=== PATIENT | female | born 1975 | race Caucasian/White ===

== ENCOUNTER 2018-04-11 12:10 | Emergency (ER) | payer MEDICAID, OTHER ==
[~2018-04-11] VITALS: Ht 162.6 cm; Wt 44.8 kg
[2018-04-11] MEDS ORDERED: METO25TA35 PO (13:04)
[2018-04-11] MEDS ORDERED: OXCA150T3 PO (13:04)
[2018-04-11] MEDS ORDERED: ESZO1TAB8 PO (13:05)
[2018-04-11] MEDS ORDERED: MULT-516 PO (13:05)
[2018-04-11] MEDS ORDERED: ASCO500T8 PO (13:06)
[2018-04-11 13:46] LABS: BASOPHILS # (AUTO) 0.02 x10^3/uL (0-0.1); BASOPHILS % (AUTO) 0 % (0-1); EOSINOPHILS # (AUTO) 0.08 x10^3/uL (0-0.4); EOSINOPHILS % (AUTO) 1 % (1-7); LYMPHOCYTES # (AUTO) 1.62 x10^3/uL (1-3.4); LYMPHOCYTES % (AUTO) 28 % (22-44); MD NO; MEAN CORPUSCULAR HEMOGLOBIN 32.6 pg (27.0-34.8); MEAN CORPUSCULAR HGB CONC 33.9 g/dL (32.4-35.8); MEAN CORPUSCULAR VOLUME 96.1 fL (80-100); MEAN PLATELET VOLUME 8.7 fL (7.4-10.4); MONOCYTES # (AUTO) 0.36 x10^3/uL (0.2-0.8); MONOCYTES % (AUTO) 6 % (2-9); NEUTROPHILS # (AUTO) 3.83 x10^3/uL (1.8-6.8); NEUTROPHILS % (AUTO) 65 % (42-75); PLATELET COUNT 229 x10^3/uL (130-400); RED BLOOD COUNT 4.03 x10^6/uL (3.82-5.3); RED CELL DISTRIBUTION WIDTH 13.5 % (9.6-15.2)
[2018-04-11 13:48] LABS: ALANINE AMINOTRANSFERASE 24 U/L (12-78); ALBUMIN 3.8 g/dL (3.4-5.0); ANION GAP 5 mmol/L (5-15); CALCIUM 8.6 mg/dL (8.5-10.1); CHLORIDE 107 mmol/L (98-107); CREATININE 0.75 mg/dL (0.55-1.02)
[2018-04-11 13:51] LABS: ALKALINE PHOSPHATASE 39 U/L (45-117); BILIRUBIN,TOTAL 0.4 mg/dL (0.2-1.0); TOTAL PROTEIN 6.7 g/dL (6.4-8.2)
[2018-04-11 13:57] VITALS: BP 115/61
[2018-04-11] MEDS ORDERED: OXYcodone/APAP 5/325MG TABLET ONE (14:57)
[2018-04-11] MEDS ORDERED: OXYcodone/APAP 5/325MG TABLET PO ONE (15:00)
== END 2018-04-11 15:03 | disposition home or self-care (01) ==
LOC: ED 14:28
DX: M54.12 Radiculopathy, cervical region (principal); R63.4 Abnormal weight loss; R59.1 Generalized enlarged lymph nodes; Z90.49 Acquired absence of other specified parts of digestive tract
CPT/HCPCS: 36415; 72125; 80053; 83605; 85025; 93005; 99285

== ENCOUNTER 2018-05-17 11:03 | Emergency (ER) | payer MEDICAID ==
[~2018-05-17] VITALS: Ht 162.6 cm; Wt 45.2 kg
[~2018-05-17 11:03] MED LIST: ASCO500T8 PO; ESZO1TAB8 PO; METO25TA35 PO; MULT-516 PO; OXCA150T3 PO
[2018-05-17] MEDS ORDERED: IBUPROFEN 200 MG TABLET ONE ×2 (11:46→11:47)
[2018-05-17] MEDS ORDERED: IBUPROFEN 200 MG TABLET PO ONE (12:00)
[2018-05-17 12:19] LABS: HCG UR SG 1.016 (1.003-1.030); MICROSCOPIC AUTO
[2018-05-17 12:23] LABS: CULTURE INDICATED? YES
[2018-05-17 13:43] VITALS: BP 108/73
== END 2018-05-17 13:47 | disposition home or self-care (01) ==
LOC: ED 13:41
DX: G89.29 Other chronic pain (principal); M25.512 Pain in left shoulder; M54.14 Radiculopathy, thoracic region; Z90.49 Acquired absence of other specified parts of digestive tract
CPT/HCPCS: 72072; 81001; 81025; 87077; 87086; 87186; 99285

== ENCOUNTER 2018-06-17 02:17 | Emergency (ER) | payer MEDICAID ==
[~2018-06-17] VITALS: Ht 162.6 cm; Wt 50.5 kg
[2018-06-17 02:19] VITALS: BP 118/82
[2018-06-17 03:11] LABS: BASOPHILS # (AUTO) 0.06 x10^3/uL (0-0.1); BASOPHILS % (AUTO) 1 % (0-1); EOSINOPHILS # (AUTO) 0.07 x10^3/uL (0-0.4); EOSINOPHILS % (AUTO) 1 % (1-7); LYMPHOCYTES # (AUTO) 2.43 x10^3/uL (1-3.4); LYMPHOCYTES % (AUTO) 40 % (22-44); MD NO; MEAN CORPUSCULAR HGB CONC 33.6 g/dL (32.4-35.8); MEAN PLATELET VOLUME 8.8 fL (7.4-10.4); MONOCYTES # (AUTO) 0.45 x10^3/uL (0.2-0.8); MONOCYTES % (AUTO) 8 % (2-9); NEUTROPHILS # (AUTO) 3.07 x10^3/uL (1.8-6.8); NEUTROPHILS % (AUTO) 51 % (42-75); PLATELET COUNT 217 x10^3/uL (130-400); RED BLOOD COUNT 4.12 x10^6/uL (3.82-5.3); RED CELL DISTRIBUTION WIDTH 13.6 % (9.6-15.2)
[2018-06-17 03:22] LABS: ALANINE AMINOTRANSFERASE 26 U/L (12-78); ALBUMIN 3.5 g/dL (3.4-5.0); ANION GAP 6 mmol/L (5-15); CHLORIDE 108 mmol/L (98-107); CREATININE 0.72 mg/dL (0.55-1.02)
[2018-06-17 03:27] LABS: ALKALINE PHOSPHATASE 40 U/L (45-117); BILIRUBIN,TOTAL 0.2 mg/dL (0.2-1.0); FREE T4 (FREE THYROXINE) 0.99 ng/dL (0.76-1.46); TOTAL PROTEIN 6.5 g/dL (6.4-8.2); TROPONIN I < 0.015 ng/mL (0.000-0.045)
== END 2018-06-17 04:09 | disposition home or self-care (01) ==
LOC: ED 03:44
DX: Z00.00 Encounter for general adult medical examination without abnormal findings (principal); R53.83 Other fatigue
CPT/HCPCS: 36415; 80053; 84439; 84443; 84484; 85025; 93005; 99285

== ENCOUNTER 2018-08-25 18:04 | Emergency (ER) | payer MEDICAID ==
[~2018-08-25] VITALS: Ht 160 cm; Wt 55.5 kg
[2018-08-25 21:28] VITALS: BP 115/78
== END 2018-08-25 21:30 | disposition home or self-care (01) ==
LOC: ED 21:00
DX: H10.11 Acute atopic conjunctivitis, right eye (principal)
CPT/HCPCS: 99283

== ENCOUNTER 2019-01-23 14:25 | Emergency (ER) | payer MEDICAID ==
[~2019-01-23] VITALS: Ht 160 cm; Wt 50.0 kg
[2019-01-23] MEDS ORDERED: OXYcodone/APAP 5/325MG TABLET PO ONE (15:00)
[2019-01-23] MEDS ORDERED: IBUPROFEN 600 MG TABLET PO ONE (15:00)
[2019-01-23 15:04] LABS: BASOPHILS # (AUTO) 0.01 x10^3/uL (0-0.1); BASOPHILS % (AUTO) 0 % (0-1); EOSINOPHILS % (AUTO) 0 % (1-7); LYMPHOCYTES # (AUTO) 0.15 x10^3/uL (1-3.4); LYMPHOCYTES % (AUTO) 4 % (22-44); MD NO; MEAN CORPUSCULAR HEMOGLOBIN 31.5 pg (27.0-34.8); MEAN CORPUSCULAR HGB CONC 34.1 g/dL (32.4-35.8); MEAN CORPUSCULAR VOLUME 92.3 fL (80-100); MEAN PLATELET VOLUME 9.1 fL (7.4-10.4); MONOCYTES # (AUTO) 0.17 x10^3/uL (0.2-0.8); MONOCYTES % (AUTO) 5 % (2-9); NEUTROPHILS # (AUTO) 3.12 x10^3/uL (1.8-6.8); NEUTROPHILS % (AUTO) 91 % (42-75); PLATELET COUNT 162 x10^3/uL (130-400); RED BLOOD COUNT 4.13 x10^6/uL (3.82-5.3); RED CELL DISTRIBUTION WIDTH 13.7 % (9.6-15.2)
[2019-01-23 15:15] LABS: ALANINE AMINOTRANSFERASE 79 U/L (12-78); ALBUMIN 3.6 g/dL (3.4-5.0); ANION GAP 8 mmol/L (5-15); CALCIUM 8.1 mg/dL (8.5-10.1); CHLORIDE 111 mmol/L (98-107); CREATININE 0.89 mg/dL (0.55-1.02)
[2019-01-23 15:18] LABS: ALKALINE PHOSPHATASE 47 U/L (45-117); BILIRUBIN,TOTAL 0.4 mg/dL (0.2-1.0); TOTAL PROTEIN 6.5 g/dL (6.4-8.2)
[2019-01-23] MEDS ORDERED: PROMETHAZINE 25 MG/ML, 1ML IM ONE (15:30)
[2019-01-23] MEDS ORDERED: IBUPROFEN 600 MG TABLET ONE (15:32)
[2019-01-23] MEDS ORDERED: PROMETHAZINE 25 MG/ML, 1ML ONE (15:33)
--- NOTE | 2019-01-23 15:59 | NUR ---
PT REFUSED PERCOCET STATING "I CAN'T HAVE VICODIN. IT MAKES ME ITCH." RN EDUCATED PT THAT PERCOCET DOES NOT CONTAIN VICODIN, THAT NORCO CONTAINS VICODIN. PT STATES "YEAH, THAT'S WHAT THEY SAID LAST TIME AND I ITCHED." PT REQUESTED PHENERGAN FOR NAUSEA. DISCUSSED WITH MONICA ESPOSITO AND PT MEDICATED ORDERED FOR FEVER/NAUSESA. PT AO X 4. SKIN PWD. RESP EVEN AND EQAUL. CALL LIGHT WITHIN REACH. WILL CONT TO MONITOR.
[2019-01-23 16:13] LABS: MICROSCOPIC AUTO
[2019-01-23 16:14] LABS: CULTURE INDICATED? NO
[2019-01-23 16:15] LABS: HCG UR SG 1.029 (1.003-1.030)
[2019-01-23 16:32] VITALS: BP 101/50
--- NOTE | 2019-01-23 16:48 | NUR ---
BREAK RN: IV REMOVED. PT GIVEN D/C PAPERWORK. PT VERBALIZED UNDERSTANDING. PT AMBULATED OUT OF DEPARTMENT WITH STEADY GAIT.
== END 2019-01-23 16:57 | disposition home or self-care (01) ==
LOC: ED 16:35
DX: R19.7 Diarrhea, unspecified (principal); R50.9 Fever, unspecified; R11.10 Vomiting, unspecified
CPT/HCPCS: 36415; 71045; 80053; 81001; 81025; 83690; 85025; 93005; 99284